=== PATIENT | male | born 1990 | race Caucasian/White ===

== ENCOUNTER 2017-11-27 09:45 | Emergency (ER) | payer OTHER ==
[2017-11-27] MEDS ORDERED: ACETAMINOPHEN 1,000 MG/100 ML 100 ML IV STA (10:25)
[2017-11-27] MEDS ORDERED: ONDANSETRON 4 MG/2 ML VIAL IVP STA (10:25)
[2017-11-27] MEDS ORDERED: SODIUM CHLORIDE 0.9% 1,000 ML IV ONE (10:25)
--- NOTE | 2017-11-27 10:28 | ED Physician Documentation ---
History of Present Illness - Stated complaint Stated Complaint: VOMITING/HEADACHE - Chief complaint Chief Complaint: General - Additonal information Additional information: hx from pt 27 male hx migraines with NV hit his head on a son at work a week ago was OK after went home after and took motrin and applied ice next day developed a frontal ZAMARRIPA with NV then OK for a few days over the weekend now ZAMARRIPA is back again with NV no fever no CO exposure - awoke with ZAMARRIPA and still had it at work - not just at home or work or in car etc no neck pain no numbness or weakness Review of Systems Constitutional: denies: Fever, Chills Ears: denies: Drainage/discharge Nose: denies: Epistaxis Cardiac: denies: Chest pain / pressure Respiratory: denies: Dyspnea GI: reports: Vomiting Musculoskeletal: denies: Neck pain Neurologic: reports: Headache, Head injury. denies: Focal weakness, Numbness, Difficulty speaking PD PAST MEDICAL HISTORY - Past Surgical History Past Surgical History: Yes Ortho: Other - Present Medications Home Medications: Ambulatory Orders Medication Instructions Recorded Confirmed Ibuprofen [Motrin] 400 mg PO Q6H PRN #30 tablet 11/27/17 Ondansetron Odt [Zofran] 4 mg TL Q6H PRN #10 tablet 11/27/17 - Allergies Allergies/Adverse Reactions: Allergies Allergy/AdvReac Type Severity Reaction Status Date / Time No Known Drug Allergies Allergy Verified 11/27/17 09:52 - Social History Does the pt smoke?: No Smoking Status: Never smoker - Immunizations Immunizations are current?: No Immunizations: TDAP >10years/unknown PD ED PE NORMAL - Vitals Vital signs reviewed: Yes - General General: Alert and oriented X 3 - HEENT HEENT: Atraumatic, PERRL, EOMI, Ears normal - Neck Neck: Supple, no meningeal sign - Cardiac Cardiac: RRR - Respiratory Respiratory: No respiratory distress, Clear bilaterally - Abdomen Abdomen: Non tender - Derm Derm: Normal color - Neuro Neuro: Alert and oriented X 3, 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, No motor deficit, No sensory deficit, Normal speech Eye Opening: Spontaneous Motor: Obeys Commands Verbal: Oriented GCS Score: 15 Results - Vitals Vitals: Vital Signs - 24 hr 11/27/17 11/27/17 09:49 12:07 Temperature 36.7 C Heart Rate 87 76 Respiratory 14 16 Rate Blood Pressure 139/77 H 125/89 H O2 Saturation 98 98 Oxygen O2 Source Room air - Rads (name of study) CTH Radiology: See rad report (neg) PD MEDICAL DECISION MAKING - ED course ED course: hx and exam c/w CHI - no suggestive of meningitis SAH etc better with ofirmev and zofran Departure - Departure Disposition: 01 Home, Self Care Clinical Impression: Concussion Qualifiers: Encounter type: initial encounter Loss of consciousness presence/duration: without LOC Qualified Code(s): S06.0X0A - Concussion without loss of consciousness, initial encounter Condition: Good Instructions: ED Concussion Prescriptions: Ibuprofen [Motrin] 400 mg PO Q6H PRN #30 tablet PRN Reason: Pain Ondansetron Odt [Zofran] 4 mg TL Q6H PRN #10 tablet PRN Reason: Nausea / Vomiting Comments: The CT scan is fine - no skull fracture or bleeding It is safe for you to go home. But it may take a while to recover from a concussion - you will need to rest for the next few days and then slowly advabce your activities as tolerated - if you start getting headache or vomiting again you need to cut back. Please follow up with your PMD for a recheck next week if not completely better And you need to be very careful not to hit your head again until you have fully recovered - a secnd impact can cause brain swelling - so no contact sports, bike riding, etc Forms: Activity restrictions
--- NOTE | 2017-11-27 11:06 | CT Report ---
EXAM: CT HEAD EXAM DATE: 11/27/2017 10:57 AM. CLINICAL HISTORY: Hit head while working last week. Head injury with headache, nausea and vomiting. COMPARISON: None. TECHNIQUE: Multiaxial CT images were obtained from the foramen magnum to the vertex. Reformats: Coron al. IV contrast: None. In accordance with CT protocol optimization, one or more of the following dose reduction techniques w ere utilized for this exam: automated exposure control, adjustment of mA and/or KV based on patient s ize, or use of iterative reconstructive technique. FINDINGS: Parenchyma: No intraparenchymal hemorrhage. No evidence of mass, midline shift, or CT findings of inf arction. Oshea-white differentiation is distinct. Extraaxial Spaces: Normal for age. No subdural or epidural collections identified. Ventricles: Normal in size and position. Sinuses and Orbits: Imaged paranasal sinuses, orbits, and mastoids show no significant abnormality. Bones: No evidence of fracture or calvarial defect. Other: None. IMPRESSION: 1. Normal head CT. 2. No evidence for intracranial hemorrhage or depressed calvarial fracture. [facility] Referring Provider Line: [phone] SITE ID: [id number]
[2017-11-27 12:08] VITALS: BP 125/89
== END 2017-11-27 12:20 | disposition home or self-care (01) ==
LOC: ED 09:45
DX: S06.0X0A Concussion without loss of consciousness, initial encounter (principal); W22.8XXA Striking against or struck by other objects, initial encounter
CPT/HCPCS: 70450; 96365; 96375; 99283; J0131

== ENCOUNTER 2021-11-01 08:00 | Outpatient (CLI) | payer OTHER | END 2021-11-01 23:59 | disposition home or self-care (01) | LOC: LAB.N 08:00 | PROVIDERS: ATTEND Physician Assistant Medical | DX: B34.9 Viral infection, unspecified (principal); Z20.822 Contact with and (suspected) exposure to COVID-19 ==